=== PATIENT | female | born 1950 | race Caucasian/White ===

== ENCOUNTER 2016-06-01 23:54 | Inpatient (IN) | payer MEDICARE, OTHER ==
[2016-06-02 00:27] LABS: BASOPHIL 0.9 % (0-2); EOSINOPHIL 2.9 % (0-7); HCT 43.8 % (37.0-47.0); HGB 15.1 g/dl (12.5-16.0); LYMPHOCYTE 40.3 % (15-48); MCH 30.6 pg (25.0-31.0); MCHC 34.5 g/dL (32.0-36.0); MCV 88.7 fL (78.0-100.0); MONOCYTE 6.3 % (0-12); NEUTROPHIL 49.6 % (41-80); PLT 196 K/uL (150-400); RBC 4.94 M/uL (4.20-5.40); RDW 13.1 % (11.5-14.0); WBC 5.9 K/uL (4.0-10.5)
[2016-06-02 00:32] LABS: INR 1.01 (0.9-1.2); PROTHROMBIN TIME 12.9 SECONDS (11.7-14.0); PTT 28.8 SECONDS (23.2-31.4)
[2016-06-02 00:33] LABS: D-DIMER 0.27 ug/mLFEU (0.00-0.41)
[2016-06-02 00:40] LABS: CKMB 2.78 ng/mL (0.97-4.94); MYOGLOBIN 31 ng/mL (26-65); TROPONIN T < 0.010 ng/mL
[2016-06-02 00:41] LABS: ALBUMIN 4.5 g/dL (3.4-4.8); BILIRUBIN - TOTAL 0.4 mg/dL (0.1-1.0); CREATININE 0.9 mg/dL (0.5-1.0); GLOBULIN (CALCULATION) 2.9 g/dL (2.2-4.2); MAGNESIUM 2.18 mg/dL (1.40-2.10); POTASSIUM 3.5 mmol/L (3.5-5.1); TOTAL PROTEIN 7.4 g/dL (6.4-8.3)
[2016-06-02 00:42] LABS: PRO-BNP 263 pg/mL (0-125)
[2016-06-02 02:24] LABS: BILIRUBIN NEGATIVE (NEGATIVE); BLOOD NEGATIVE Ery/uL (NEGATIVE); CLARITY CLEAR (CLEAR); COLOR COLORLESS (YELLOW); GLUCOSE (U) NORMAL (NORMAL); KETONE (U) NEGATIVE (NEGATIVE); LEUKOCYTES 2+ Leu/uL (NEGATIVE); NITRITE NEGATIVE (NEGATIVE); PROTEIN NEGATIVE (NEGATIVE); SPECIFIC GRAVITY <=1.005 (1.001-1.030); UROBILINOGEN 0.2 mg/dL (0.2-1.0); pH 6.5 (5.0-9.0)
[2016-06-02 02:29] LABS: BACTERIA TRACE; SQUAMOUS EPITHELIAL CELLS RARE
[2016-06-02 04:45] LABS: BASOPHIL 0.2 % (0-2); EOSINOPHIL 0.6 % (0-7); HCT 44.1 % (37.0-47.0); HGB 15.4 g/dl (12.5-16.0); LYMPHOCYTE 12.4 % (15-48); MCH 30.6 pg (25.0-31.0); MCHC 34.9 g/dL (32.0-36.0); MCV 87.7 fL (78.0-100.0); MONOCYTE 5.8 % (0-12); MPV 10.7 fL (6.0-9.5); PLT 213 K/uL (150-400); RBC 5.03 M/uL (4.20-5.40); RDW 13.1 % (11.5-14.0)
[2016-06-02 04:46] LABS: WBC 10.7 K/uL (4.0-10.5)
[2016-06-02 05:08] LABS: CREATININE 0.8 mg/dL (0.5-1.0); POTASSIUM 3.5 mmol/L (3.5-5.1)
[2016-06-03 05:20] LABS: HCT 39.3 % (37.0-47.0); HGB 13.6 g/dl (12.5-16.0); MCH 30.8 pg (25.0-31.0); MCHC 34.6 g/dL (32.0-36.0); MCV 88.9 fL (78.0-100.0); MPV 10.4 fL (6.0-9.5); RBC 4.42 M/uL (4.20-5.40); RDW 13.1 % (11.5-14.0); WBC 4.9 K/uL (4.0-10.5)
[2016-06-03 05:37] LABS: CREATININE 0.9 mg/dL (0.5-1.0); POTASSIUM 4.1 mmol/L (3.5-5.1)
[2016-06-03] MEDS ORDERED: CERTAGEN1 EACH PO (08:39)
[2016-06-03] MEDS ORDERED: ASPIRIN CHEWABL81 MG PO (08:39)
[2016-06-03] MEDS ORDERED: OS-CAL500 MG PO (08:39)
[2016-06-03] MEDS ORDERED: ALLERGY SHOTS SC (08:39)
[2016-06-03] MEDS ORDERED: LOPRESSOR25 MG PO (08:40)
[2016-06-03] MEDS ORDERED: AMIODARONE HCL200 MG PO (08:48)
[2016-06-03] MEDS ORDERED: XARELTO20 MG PO (08:48)
[2016-06-03] MEDS ORDERED: LIPITOR20 MG PO (08:59)
== END 2016-06-03 11:30 | disposition home health service (06) | DRG 309 ==
LOC: FER 23:54 → FTCU 06-02 03:07 → FICU 06-02 03:07 → FTCU 06-02 16:26
PROVIDERS: Emergency Medicine; ADMIT Internal Medicine
DX: I48.91 Unspecified atrial fibrillation (principal); N39.0 Urinary tract infection, site not specified; I10 Essential (primary) hypertension; K57.90 Diverticulosis of intestine, part unspecified, without perforation or abscess without bleeding; Z82.49 Family history of ischemic heart disease and other diseases of the circulatory system; Z90.710 Acquired absence of both cervix and uterus; Z85.820 Personal history of malignant melanoma of skin; E78.5 Hyperlipidemia, unspecified
CPT/HCPCS: 36415; 36600; 71010; 71275; 80048; 80053; 80061; 80162; 81001; 82550; 82553; 82803; 83036; 83735; 83874; 83880; 84439; 84443; 84484; 85025; 85379; 85610; 85730; 87088; 87205; 87324; 87449; 93005; 94640; 94760; 96374; J0282; J1160; J1940; J2060; Q9967

== ENCOUNTER → 2020-04-16 | Day surgery (SDC) | payer MEDICARE, OTHER ==
[~2020-04-16] VITALS: Ht 172.7 cm; Wt 75.3 kg
[~2020-04-16] MED LIST: ALLERGY SHOTS SC; AMIODARONE HCL200 MG PO; ASCORBIC ACID500 MG PO; ASPIRIN CHEWABL81 MG PO; ASPIRIN EC81 MG PO; BETAPACE80 M1 PO; BETAPACE80 MG PO; BYSTOLIC10 MG PO; CARDIZEM CD180 MG PO; CATAPRES0.1 MG PO; CERTAGEN1 EACH PO; COZAAR 25MG TAB25 MG PO; DAILY MULTIPLE1 EAC1 PO; FLECAINIDE ACET50 MG PO; LIPITOR20 MG PO; LOPRESSOR25 MG PO; OS-CAL500 MG PO; PREDNISONE 20MG20 MG PO; SYNTHROID75 MCG PO; TOPROL XL 25MG25 MG PO; VITAMIN D3100 MCG PO; XARELTO20 MG PO
== END | disposition home or self-care (01) ==
LOC: FAS 07:30
DX: K57.30 Diverticulosis of large intestine without perforation or abscess without bleeding (principal); K63.89 Other specified diseases of intestine; R19.4 Change in bowel habit; J45.909 Unspecified asthma, uncomplicated; I48.0 Paroxysmal atrial fibrillation; I10 Essential (primary) hypertension; E78.00 Pure hypercholesterolemia, unspecified; E03.9 Hypothyroidism, unspecified; Z88.8 Allergy status to other drugs, medicaments and biological substances
CPT/HCPCS: 36415; 71045; 80053; 84484; 85025; 93005; J1610; J2405; J2704; J7040; J7120